=== PATIENT | female | born 1965 ===

== ENCOUNTER 2024-09-04 02:23 | Outpatient (CLI) | payer MEDICARE, MEDICAID, SELFPAY ==
--- NOTE | 2024-09-04 | DI.US_ITS ---
Exam(s) US SOFT TISSUE EXTREMITY EXAM: US SOFT TISSUE EXTREMITY CLINICAL HISTORY: RT KNEE PAIN, RT SIDE. TECHNIQUE: Ultrasound was performed using standard protocol. COMPARISON: No exams were available for comparison FINDINGS: Dedicated ultrasound examination of the area of clinical concern the anterior aspect of and below rig ht knee. Patient gives a history of recurring significant swelling at this area, mostly at the end o f the day. She does not work on her knees. At the present time of image acquisition she states that the swelling has decreased. The only finding in the soft tissues anterior to the patella and patellar ligament is a sliver fluid. This is a hint that there may be an element of recurring prepatellar bursitis. IMPRESSION: As above. If clinically indicated MRI can be performed for added sensitivity/specificity. DATA REPOSITORY:
== END 2024-09-04 02:43 ==
LOC: DI 02:23
PROVIDERS: Visit Provider Nurse Practitioner Family
DX: M25.561 Pain in right knee (principal)
CPT/HCPCS: 76881

== ENCOUNTER 2024-11-09 10:48 | Outpatient (CLI) | payer MEDICARE, MEDICAID, SELFPAY ==
[2024-11-10 12:08] LABS: Tacrolimus 7.4 ng/mL (See Note)
== END 2024-11-09 10:49 | disposition home or self-care (01) ==
LOC: LBO 10:51
PROVIDERS: Visit Provider Internal Medicine Nephrology
DX: Z94.0 Kidney transplant status (principal); Z79.899 Other long term (current) drug therapy; Z51.81 Encounter for therapeutic drug level monitoring
CPT/HCPCS: 36415; 80197

== ENCOUNTER 2024-11-23 00:51 | Outpatient (CLI) | payer MEDICARE, MEDICAID, SELFPAY ==
--- NOTE | 2024-11-23 | DI.US_ITS ---
Exam(s) US RENAL EXAM: US RENAL CLINICAL HISTORY: Kidney transplant recipient, Z94.0; visualize [place] kidneys. TECHNIQUE: [place] scale imaging and color doppler were used. COMPARISON: No exams were available for comparison FINDINGS: Right kidney: 6 cm in lengthcm. Difficult to visualize. Echogenicity: Increased. Hydronephrosis: No Left kidney: Not visualized. The region is obscured by bowel gas. Transplant kidney: Right lower quadrant. Measures 10 cm in length. Normal echogenicity. No hydrone phrosis or evidence of calcification or mass. Bladder:Normal. Prevoid vol: Cc Postvoid vol: Cc IMPRESSION: Atrophic, echogenic [place] right kidney. The [place] left kidney was not visible. The right lower quadrant renal transplant appears normal. DATA REPOSITORY:
== END 2024-11-23 01:11 ==
PROVIDERS: PCP Nurse Practitioner Family; Visit Provider Nurse Practitioner Family
DX: M47.812 Spondylosis without myelopathy or radiculopathy, cervical region (principal)
CPT/HCPCS: 76770

== ENCOUNTER 2024-11-23 01:01 | Outpatient (CLI) | payer MEDICARE, MEDICAID, SELFPAY ==
--- NOTE | 2024-11-23 | DI.CT_ITS ---
Exam(s) CT CERVICAL SPINE WO EXAM: CT CERVICAL SPINE WO CLINICAL HISTORY: Cervical spondylosis wo myelopathy or radiculopathy, M47.812. TECHNIQUE: Imaging Protocol: Axial computed tomography images with coronal and sagittal reformatted images were created and reviewed CONTRAST MATERIAL: Noncontrast COMPARISON: No exams were available for comparison FINDINGS: Bones: No fracture or subluxation is seen. The alignment of the cervical spine is normal including t he cervicovertebral junction and cervicothoracic junction. There is spurring at the articulation of the dens with the anterior arch of C1. No significant facet joint degenerative changes. Discs: Moderate narrowing of the C5-6 disc. Endplate osteophytes which project laterally into the ne ural foramen, left greater than right, causing severe left and mild right. There remaining disc heig hts appear normal. No visible disc bulging or neural foraminal narrowing. No central canal stenosis . Soft Tissues: The soft tissues of the neck are unremarkable. No large disk herniations are identified . The visualized portions of the lung apices are clear. IMPRESSION: Degenerative disc changes at C5-6 cause severe left neural foraminal narrowing. No central canal [place] nosis at any level. No gross evidence of a disc herniation at any level. RADIATION DOSE DELIVERED: 297.51mGy.cm Total DLP DATA REPOSITORY: All CT scans at this facility are submitted to the National Radiology Data Registry (NRDR) Dose Index Registry (DIR) with the [employer] ([employer]). RADIATION OPTIMIZATION: All CT scans at this facility use at least one of these dose optimization te chniques: automated exposure control; mA and/or kV adjustment per patient size (includes targeted exa ms where dose is matched to clinical indication); or iterative reconstruction.
== END 2024-11-23 01:21 ==
LOC: DI 01:01
PROVIDERS: Visit Provider Nurse Practitioner Family
DX: M47.812 Spondylosis without myelopathy or radiculopathy, cervical region (principal); Z94.0 Kidney transplant status; N26.1 Atrophy of kidney (terminal)
CPT/HCPCS: 76770; 72125

== ENCOUNTER 2025-02-08 01:13 | Outpatient (CLI) | payer MEDICARE, MEDICAID, SELFPAY ==
[2025-02-08 12:22] LABS: Kit/Specimen SENT
[2025-02-08 12:29] LABS: HCT 42.1 % (36.0-46.0); HGB 13.9 g/dL (11.2-15.7); MCH 31.4 pg (27.0-33.0); MCHC 33.0 % (32.0-36.0); MCV 95 fL (80-95); MPV 10.2 fL (8.0-11.0); Platelet Count 207 10^3/uL (130-400); RBC 4.42 10^6/uL (3.93-5.22); RDW 12.7 % (11.7-14.6); RDW-SD 45.1 fL; WBC 8.22 10^3/uL (4.4-10.8)
[2025-02-08 12:57] LABS: COMMENT (LAB VIEW ONLY) 100.34 mg/dL; Microalb ug/mg Crea 7.7 ug/mg Cr
[2025-02-08 12:59] LABS: Anion Gap 8.4 mmol/L (3-11); BUN 12 mg/dL (7-18); CO2 27.6 mmol/L (21.0-32.0); Calcium 8.8 mg/dL (8.5-10.1); Chloride 98 mmol/L (98-107); Estimated GFR 65.30 (mL/min/1.73m2); Glucose 138 mg/dL (74-106); Potassium 3.7 mmol/L (3.5-5.1); Sodium 134 mmol/L (136-145)
[2025-02-08 13:20] LABS: Glucose Negative (Negative)
[2025-02-08 13:35] LABS: C & S Indicated? No; RBC Negative HPF (0-2)
== END 2025-02-08 01:14 | disposition home or self-care (01) ==
LOC: LBO 01:13
PROVIDERS: PCP Nurse Practitioner Family; Visit Provider Internal Medicine Nephrology
DX: Z94.0 Kidney transplant status (principal)
CPT/HCPCS: 36415; 80048; 85027; 80197; 81003; 81015; 82043; 82570; 84100

== ENCOUNTER 2025-03-29 12:42 | Outpatient (CLI) | payer MEDICARE, MEDICAID, SELFPAY ==
[2025-03-29 12:49] LABS: HCT 42.1 % (36.0-46.0); HGB 14.1 g/dL (11.2-15.7); MCH 31.1 pg (27.0-33.0); MCHC 33.5 % (32.0-36.0); MCV 93 fL (80-95); MPV 9.6 fL (8.0-11.0); Platelet Count 215 10^3/uL (130-400); RBC 4.54 10^6/uL (3.93-5.22); RDW 12.5 % (11.7-14.6); RDW-SD 42.8 fL; WBC 9.49 10^3/uL (4.4-10.8)
[2025-03-29 13:10] LABS: Glucose Negative (Negative)
[2025-03-29 13:24] LABS: C & S Indicated? No; RBC Negative HPF (0-2)
[2025-03-29 13:46] LABS: Anion Gap 7.2 mmol/L (3-11); BUN 8 mg/dL (7-18); CO2 28.8 mmol/L (21.0-32.0); Calcium 8.9 mg/dL (8.5-10.1); Calculated LDL 79 mg/dL (<100); Chloride 101 mmol/L (98-107); Cholesterol 176 mg/dL (<200); Estimated GFR 85.35 (mL/min/1.73m2); Ferritin 130 ng/mL (8-252); Glucose 174 mg/dL (74-106); HDL Cholesterol 42 mg/dL (>or=50); Potassium 3.7 mmol/L (3.5-5.1); Sodium 137 mmol/L (136-145); Triglyceride 275 mg/dL (<150); Vitamin D 25 Total 36 ng/mL (30-100)
[2025-03-29 13:49] LABS: PROTEIN 15.8 mg/dL; Prot/Crea Ur Ratio 0.15
[2025-03-29 13:50] LABS: Hemoglobin A1C 6.1 % (<5.7)
[2025-03-29 13:52] LABS: Iron 68 ug/dL (50-170); Total Iron Binding Capacity 328 ug/dL (250-450); Transferrin Sat 21 % (15-50)
== END 2025-03-29 12:43 | disposition home or self-care (01) ==
LOC: LBO 12:43
PROVIDERS: PCP Nurse Practitioner Family; Visit Provider Internal Medicine Nephrology
DX: Z79.899 Other long term (current) drug therapy (principal); Z94.0 Kidney transplant status; Z51.81 Encounter for therapeutic drug level monitoring
CPT/HCPCS: 36415; 80048; 80061; 82306; 85027; 87799; 80197; 81003; 81015; 82565; 82728; 83036; 83540; 83550; 83970; 84100; 84156; 87497

== ENCOUNTER 2025-04-04 04:31 | Outpatient (CLI) | payer MEDICARE, MEDICAID, SELFPAY ==
--- NOTE | 2025-04-04 | DI.CT_ITS ---
Exam(s) CT CHEST WO EXAM: CT CHEST WO CLINICAL HISTORY: SOB R06.02. TECHNIQUE: Multi planar reconstructions were performed. CONTRAST MATERIAL: None COMPARISON: No exams were available for comparison FINDINGS: CHEST: LUNGS: There are a few tiny well-defined nodules in the right lower lobe, these measuring 3 mm. There are mild increased markings in the right upper lobe, exhibiting benign appearance. No pleural effusion. On the opposite-left side there are no significant focal findings in the left upper lobe and lingular segment. In the left lower lobe there is an area of multiple small nodular densities (average size 4 mm), this located in the peripheral aspect of the superior segment of the left lower lobe. No associated air bronchograms. No pleural effusion. MEDIASTINUM: There is no obvious hilar nor mediastinal adenopathy. CARDIAC: Heart size is normal. There is no pericardial effusion.Caliber of the thoracic aorta is within normal limits. VISUALIZED UPPER ABDOMEN:Gallbladder surgically absent. No adrenal masses. Both kidneys are severely atrophic. Spleen size normal. OSSEOUS: No significant osseous lesions.No fractures.. IMPRESSION: 1. Main findings here are in the peripheral aspect of the superior segment of the left lower lobe where there are multiple small nodules in the lung at this level with average size 4 mm. Similar findings are not seen elsewhere in lung [place] although there are few tiny benign-appearing nodules in the opposite- right lung. There are no pleural effusions nor intrathoracic adenopathy. 2. Close follow-up recommended including repeat CT scan in 3 months. 3. Advanced atrophy of both kidneys incidentally noted. RADIATION DOSE DELIVERED: 283.59mGy.cm Total DLP DATA REPOSITORY: All CT scans at this facility are submitted to the National Radiology Data Registry (NRDR) Dose Index Registry (DIR) with the [employer] ([employer]). RADIATION OPTIMIZATION: All CT scans at this facility use at least one of these dose optimization techniques: automated exposure control; mA and/or kV adjustment per patient size (includes targeted exams where dose is matched to clinical indication); or iterative reconstruction.
== END 2025-04-04 04:51 ==
LOC: DI 04:31
PROVIDERS: PCP Nurse Practitioner Family; Visit Provider Nurse Practitioner Family
DX: R06.02 Shortness of breath (principal); R91.8 Other nonspecific abnormal finding of lung field
CPT/HCPCS: 71250